=== PATIENT | female | born 1940 | race African-American/Black ===

== ENCOUNTER 2019-11-06 08:52 | Emergency (ER) | payer OTHER ==
[~2019-11-06] VITALS: Ht 170.2 cm; Wt 79.0 kg
[~2019-11-06 08:52] MED LIST: AMLODIPINE; AMOXICILLIN; ASPIRIN; HYDROCODONE; ZOFRAN
[2019-11-06] MEDS ORDERED: DICYCLOMINE 10 MG/5 ML ORAL SYR PO STA (10:22)
[2019-11-06] MEDS ORDERED: MAGNESIUM/ALUMINUM HYDROXIDE/SIMETHICONE 30ML UDC PO STA (10:22)
[2019-11-06] MEDS ORDERED: VISCOUS LIDOCAINE 2% 15 ML UDC PO STA (10:22)
[2019-11-06 11:16] VITALS: BP 150/60
== END 2019-11-06 11:17 | disposition home or self-care (01) ==
LOC: ER 09:33
DX: T54.91XA Toxic effect of unspecified corrosive substance, accidental (unintentional), initial encounter (principal); R20.8 Other disturbances of skin sensation; Y92.098 Other place in other non-institutional residence as the place of occurrence of the external cause; R03.0 Elevated blood-pressure reading, without diagnosis of hypertension; E11.9 Type 2 diabetes mellitus without complications; I10 Essential (primary) hypertension; I25.2 Old myocardial infarction; E78.00 Pure hypercholesterolemia, unspecified
CPT/HCPCS: 99284

== ENCOUNTER 2025-01-07 16:25 | Emergency (ER) | payer OTHER ==
[~2025-01-07] VITALS: Ht 165.1 cm; Wt 75.0 kg
[2025-01-07 16:38] VITALS: O2SAT 96
[2025-01-07 19:00] LABS: BASOPHILS % 1.2 % (0.0-2.0); EOSINOPHILS % 1.8 % (0.0-5.0); HEMATOCRIT. 32.9 % (36.0-48.0); HEMOGLOBIN. 10.8 g/dL (12.0-16.0); LYMPHOCYTES % 20.6 % (20.0-50.0); MEAN CORPUSCULAR HEMOGLOBIN 28.2 pg (28.0-32.0); MEAN CORPUSCULAR HGB CONC 32.7 g/dL (31.0-37.0); MEAN CORPUSCULAR VOLUME 86.3 fL (81.0-99.0); MEAN PLATELET VOLUME 7.5 fl (7.4-10.4); MONOCYTES % 6.9 % (2.0-8.0); NEUTROPHILS % 69.5 % (40.0-76.0); PLATELET 228 x1000/uL (130-400); RED BLOOD CELL COUNT 3.81 mill/uL (4.2-5.4); RED CELL DISTRIBUTION WIDTH 14.9 % (11.6-14.6); WHITE BLOOD COUNT 4.7 x1000/uL (4.5-11.0)
[2025-01-07 19:08] LABS: CHLORIDE 105 mEq/L (98-107); POTASSIUM 4.2 mEq/L (3.5-5.1); SODIUM 143 mEq/L (136-145)
[2025-01-07 19:09] LABS: CALCIUM 9.8 mg/dL (8.7-10.4); CARBON DIOXIDE 31 mEq/L (21-32)
[2025-01-07 19:14] LABS: CREATININE 1.4 mg/dL (0.6-1.0); GLUCOSE 83 mg/dL (70-105); UREA NITROGEN BLOOD 42 mg/dL (9-23)
[2025-01-07] MEDS: CYCLOBENZAPRINE 10MG TABLET PO ONE (19:47)
[2025-01-07] MEDS: ASPIRIN 81MG TABLET PO ONE (19:48)
[2025-01-07] MEDS ORDERED: CYCL5TAB3 MT (22:25)
[2025-01-07 22:52] VITALS: BP 137/65; PULSE 89; RESP 13; TEMP 36.8; O2SAT 99
== END 2025-01-07 23:16 | disposition home or self-care (01) ==
LOC: ER 16:25
DX: R25.2 Cramp and spasm (principal); I11.0 Hypertensive heart disease with heart failure; I50.9 Heart failure, unspecified; E78.00 Pure hypercholesterolemia, unspecified; E11.9 Type 2 diabetes mellitus without complications; Z79.82 Long term (current) use of aspirin; Z79.899 Other long term (current) drug therapy
CPT/HCPCS: 36415; 80048; 83735; 85025; 99283